=== PATIENT | female | born 1985 | race Two or more races ===

== ENCOUNTER → 2016-07-20 | Outpatient (CLI) | payer OTHER ==
[2016-07-20 12:10] LABS: BASO % 1 % (0-3); EOS % 1 % (0-3); HEMATOCRIT 36.6 % (36.0-47.0); HEMOGLOBIN 12.4 g/dL (12.0-15.5); LYMPH % 23 % (24-48); MEAN CORPUSCULAR HEMOGLOBIN 29 pg (25-35); MEAN CORPUSCULAR HGB CONC 34 g/dL (31-37); MEAN CORPUSCULAR VOLUME 85 fL (79-100); MONO % 6 % (0-9); NEUT % 71 % (31-73); PLATELET COUNT 233 x10^3/uL (140-400); RED CELL DISTRIBUTION WIDTH 13.1 % (11.5-14.5); WHITE BLOOD COUNT 8.9 x10^3/uL (4.0-11.0)
[2016-07-20 12:15] LABS: BARBITURATES NEG (NEG); BENZODIAZEPINES NEG (NEG); CANNABINOIDS NEG (NEG); COCAINE NEG (NEG); METHADONE NEG (NEG); OPIATES NEG (NEG); PHENCYCLIDINE NEG (NEG)
[2016-07-20 12:22] LABS: CREATININE 0.6 mg/dL (0.6-1.0); GFR 115.9
== END | disposition home or self-care (01) ==
LOC: LAB 11:15
PROVIDERS: ATTEND Psychiatry & Neurology Neurology
DX: G43.009 Migraine without aura, not intractable, without status migrainosus (principal); Q85.00 Neurofibromatosis, unspecified
CPT/HCPCS: 36415; 82565; 82607; 84443; 84520; 85027; 85651; G0481

== ENCOUNTER → 2016-08-08 | Outpatient (CLI) | payer OTHER ==
[~2016-08-08] MED LIST: GADOBUTROL 7.5 MMOL/7.5 ML VIAL IV ONE
--- NOTE | 2016-08-08 11:29 | RAD ---
MR BRAIN WITH CONTRAST HISTORY: CHRONIC HEADACHES, HX OF NEUROFIBROMATOSIS, NO SX HX, NO PRIORS, 5ML GADAVIST TECHNIQUE: Axial diffusion-weighted imaging was obtained. Additional axial FLAIR, and axial T2 weighted images were obtained. Sagittal and axial T1-weighted imaging was obtained prior to the administration of intravenous contrast material. Additional sagittal, axial, and coronal T1-weighted imaging was obtained after the administration of gadolinium based intravenous contrast material. FINDINGS: No abnormal signal within the brain parenchyma. No abnormal enhancement identified. No restricted diffusion to indicate an acute infarct. No evidence of acute intracranial hemorrhage. No extra-axial fluid collections are identified. There is no mass effect or midline shift. Ventricular size is appropriate. Basal cisterns are patent. Visualized flow voids are normal in course, caliber, and signal. Globes and orbits are unremarkable. Paranasal sinuses and mastoid air cells are clear. IMPRESSION: Unremarkable MR examination of the brain with contrast. No restricted diffusion to indicate acute infarct. No abnormal enhancement. Electronically signed by: Daniele Betancur MD (08/08/2016 11:26 AM)
== END | disposition home or self-care (01) ==
LOC: MRI 10:17
PROVIDERS: ATTEND Psychiatry & Neurology Neurology
DX: Q85.00 Neurofibromatosis, unspecified (principal)
CPT/HCPCS: 70553; A9585

== ENCOUNTER → 2019-02-04 | Outpatient (CLI) | payer MEDICAID, OTHER ==
--- NOTE | 2019-02-04 13:33 | EEG ---
DATE OF SERVICE: 02/04/2019 EEG NUMBER: [id number] OBJECTIVE: This is a 33-year-old female patient with history of frequent staring spells. EEG was requested to help evaluate seizure. METHODS: Twenty electrodes were applied according to the international 10-20 electrode placement system. EKG monitoring, hyperventilation, intermittent photic stimulation, monopolar and bipolar montages were routinely utilized. The record was obtained on a digital system with video monitoring. FINDINGS: 1. Background: The patient was recorded in the awake, drowsy, and sleep states. The overall background amplitude is 10-20 microvolts. A posterior dominant rhythm of 8 Hz is observed. 2. Abnormalities: No specific epileptiform discharge or electrographic seizure is seen. No focal or diffuse slowing. 3. Activation: Hyperventilation was performed with good efforts and normal response. Intermittent photic stimulation was performed with photic driving. No specific epileptiform discharge or electrographic seizure induced by hyperventilation or intermittent photic stimulation. IMPRESSION: This EEG is a normal study for the awake, drowsy, and sleep states. No focal, lateralizing, specific epileptiform discharge or electrographic seizure is seen. Suggest a long-term video EEG monitoring per history of frequent staring spells. EBENEZER CAMACHO MD DR: ALPHONSE/murali JOB#: [id number] / [id number] DIEGO
== END | disposition home or self-care (01) ==
LOC: RT 08:30
PROVIDERS: ATTEND Psychiatry & Neurology Neurology
DX: R56.9 Unspecified convulsions (principal)
CPT/HCPCS: 95816